=== PATIENT | male | born 1965 | race Caucasian/White ===

== ENCOUNTER → 2018-09-13 | Outpatient (CLI) | payer OTHER ==
[~2018-09-13] MED LIST: ASPIR 8181 MG PO; FINASTERIDE5 MG PO; FLUVIRIN 245 MCG/0.8 IM; LISINOPRIL10 MG PO; MOBIC15 MG PO; ZOCOR20 MG PO; ZOFRAN ODT4 MG PO
== END ==
LOC: CAT 09:58
DX: Z13.6 Encounter for screening for cardiovascular disorders (principal); E78.00 Pure hypercholesterolemia, unspecified; I25.10 Atherosclerotic heart disease of native coronary artery without angina pectoris

== ENCOUNTER → 2019-07-03 | Outpatient (CLI) | payer BC, OTHER ==
[~2019-07-03] MED LIST changes: +LIPITOR40 MG PO; +PROPECIA1 MG PO; +TOPROL XL200 MG PO; +XARELTO20 MG PO
== END ==
LOC: SJCVCIMAG 07:58
DX: I07.1 Rheumatic tricuspid insufficiency (principal); I11.9 Hypertensive heart disease without heart failure; I48.0 Paroxysmal atrial fibrillation; K55.9 Vascular disorder of intestine, unspecified; E66.9 Obesity, unspecified; E78.00 Pure hypercholesterolemia, unspecified; Z87.891 Personal history of nicotine dependence

== ENCOUNTER → 2019-07-06 | Outpatient (CLI) | payer BC, OTHER ==
[~2019-07-06] VITALS: Ht 190.5 cm; Wt 106.6 kg
[2019-07-06 08:52] VITALS: BP 106/74
[2019-07-06 08:53] LABS: HEMATOCRIT 45.1 % (42.0-52.0); HEMOGLOBIN 15.4 gm/dL (14.0-18.0); MCH 33.2 pg (26.0-34.0); MCHC 34.1 g/dL (28.0-37.0); MCV 97.4 fL (80.0-100.0); RBC 4.63 mil/uL (4.50-6.00); RDW 12.9 % (10.5-14.5); WBC 5.8 thou/uL (4.0-11.0)
[2019-07-06 09:03] LABS: ANION GAP 8 mmol/L (7-16); BUN 22 mg/dL (7-18); CALCIUM 9.2 mg/dL (8.5-10.1); CHLORIDE 105 mmol/L (98-107); CO2 26 mmol/L (21-32); CREATININE 1.2 mg/dL (0.7-1.3); GLUCOSE 95 mg/dL (74-106); POTASSIUM 4.8 mmol/L (3.5-5.1); SODIUM 139 mmol/L (136-145)
[2019-07-06 09:09] LABS: CHOLESTEROL 109 mg/dL (<200); HDL CHOLESTEROL 37 mg/dL (>40); LDL CHOLESTEROL 54 mg/dL (<100); TC:HDL 2.9 Ratio (Not establshd); TRIGLYCERIDE 91 mg/dL (<150); VLDL 18 mg/dL (<40)
--- NOTE | 2019-07-06 11:28 | EKG ---
[facility] [place] [address] ELECTROCARDIOGRAM REPORT Name: SANA ECKERT THAI Room #: PRE [facility]..#: [id number] Admission: Attend Phys: Derek Barrientos MD Discharge: Date of : 65 Report #: [id number] THIS REPORT FOR: cc: Thomas Horne MD, Rene P. MD Couchonnal, Luis F. MD ~ THIS REPORT FOR: //name// [facility] Test Date: 2019-07-06 Test Time: 08:43:07 Pat Name: SANA ECKERT Department: Room: Gender: Lunch Cook: Raya VALENCIA : 1965 Requested By: Derek Barrientos Order Number: [id number] MD: Jareth Anaya Measurements Intervals Parsons Rate: 135 P: 96 ME: 134 QRS: 61 QRSD: 141 T: 32 QT: 287 QTc: 431 Interpretive Statements Atrial flutter with RVR No previous ECG available for comparison Electronically Signed On 07-06-2019 11:27:58 BOOK AUTHOR by Jareth Anaya [email or web address] <ELECTRONICALLY SIGNED> By: Jareth Anaya MD 07/06/19 1127 2 2 Jareth Anaya MD /OSMANY
--- NOTE | 2019-07-06 15:42 | CATHLAB ---
[facility] [place] [address] INVASIVE PROCEDURE REPORT Name: SANA ECKERT Room #: REG [facility] JefersonDaysiRobert.#: [id number] Admission: 07/06/19 Attend Phys: Derek Barrientos MD Discharge: Date of : 65 Report #: [id number] THIS REPORT FOR: cc: Tohmas Horne MD, Rene P. MD Park, Jin S. MD ~ APPROVED REPORT Study performed: 07/06/2019 10:46:02 Patient Details Patient Status: Out-Patient Room #: The patient is a 54 year-old male Event Personnel Derek Barrientos Assistant Field Hockey Coach, Robel Alicea RN, Sana Saavedra Jackson, Sherra RTRobert Monitor Procedures Performed Art Access - R femoral artery* Left Heart Cath w/or w/o Coronaries [id number] [facility] 24723 Initial Mod Sed Same Phys/QHP Gr5y [id number] 05883 Mod Sed Same Phys/QHP Ea 258038 Indication Dizziness and vertigo, Atrial fibrillation, Dyspnea, Cardiomyopathy Risk Factors Hypertension Procedure Narrative The Right Groin^ was infiltrated with 1% Lidocaine subcutaneous anesthesia. A PINNACLE 4FR Sheath #[id number] sheath was inserted into the RFA^. Coronary angiography was performed using coronary diagnostic catheters. The right coronary system was accessed and visualized with a JR4 catheter. The left coronary system was accessed and visualized with a JL4 catheter. The left ventricle was accessed and visualized with a pigtail catheter. Hemostasis was obtained with manual pressure following sheath removal without any complications. The patient tolerated the procedure well and there were no complications associated with the procedure. There was no hematoma. Intraoperative Conscious Sedation [facility] [address] [place] [address] INVASIVE PROCEDURE REPORT Name: SANA ECKERT Room #: REG CL [facility]#: [id number] Admission: 07/06/19 Attend Phys: Derek Barrientos MD Discharge: Date of : 65 Report #: [id number] Sedation start time: 1051 Case end Time: 1118 Fentanyl 50 mcg Versed --1.5 mg Fluoro Time: 2.90 minutes Dose: DAP 4195.00 cGycm2 709 mGy Contrast Type and Amount: Omnipaque 35 ml Coronary Angiography The patient's coronary anatomy is right dominant. Diagnostic Cath Left Main The left main artery is a patent vessel, with no flow-limiting lesions. LAD The LAD is a moderate size caliber vessel, traverses the anterior wall and wraps around the apex. This vessel is patent with no flow-limiting lesions. Diagonal 1 This is a moderate size caliber vessel, patent with no flow-limiting lesions. Circumflex This is a moderate size caliber vessel, patent with no flow-limiting lesions. OM1 This is a moderate size caliber vessel, patent with no flow-limiting lesions. Right Coronary The RCA is a dominant vessel, patent with no flow-limiting lesions. R PDA This is a moderate size caliber vessel, patent with no flow-limiting lesions. RPLV This is a moderate size caliber vessel, patent with no flow-limiting lesions. Left Ventriculography Left Ventriculography was not performed. Ejection Fraction was 35-40% based off patient's Echocardiogram. An LVEDP was measured and there is no gradient across the outflow tract. Hemodynamics The aortic pressure is 96/76 mmHg with a mean of 85 mmHg. The left ventricular pressure is 93/14 mmHg with a mean of mmHg. The left ventricular end diastolic pressure is 22 mmHg. Conclusion 1. Angiographically normal coronary arteries. 2. Right dominant system. 3. Nonischemic cardiomyopathy. [facility] [address] [place] [address] INVASIVE PROCEDURE REPORT Name: ECKERTSANA THAI Room #: REG [facility]#: [id number] Admission: 07/06/19 Attend Phys: Derek Barrientos MD Discharge: Date of : 65 Report #: [id number] 4. Recommend EP evaluation for atrial flutter and guideline directed medical therapy. <ELECTRONICALLY SIGNED> By: Derek Barrientos MD 07/06/19 1541 [id number] 154 Derek Barrientos MD /INF
== END | disposition home or self-care (01) ==
LOC: CATH 11:24
PROVIDERS: Internal Medicine Cardiovascular Disease
DX: I42.9 Cardiomyopathy, unspecified (principal); I48.91 Unspecified atrial fibrillation; R06.00 Dyspnea, unspecified; R42 Dizziness and giddiness; I10 Essential (primary) hypertension; E78.00 Pure hypercholesterolemia, unspecified; Z87.891 Personal history of nicotine dependence; Z98.890 Other specified postprocedural states; Z79.899 Other long term (current) drug therapy; Z98.0 Intestinal bypass and anastomosis status

== ENCOUNTER → 2019-07-09 | Outpatient (CLI) | payer BC, OTHER ==
[~2019-07-09] VITALS: Ht 190.5 cm; Wt 106.6 kg
[2019-07-09 07:21] VITALS: BP 108/81
--- NOTE | 2019-07-09 09:52 | TEE ---
[facility] [place] [address] TRANSESOPHAGEAL ECHOCARDIOGRAM Name: SANA ECKERT [id number] Admission: 07/09/19 Attend Phys: Javier Armijo MD, Discharge: Date of : 65 Report #: [id number] THIS REPORT FOR: cc: Thomas Horne MD, Rene P. MD Lundgren, Craig H. MD [facility] ~ APPROVED REPORT Study performed: 07/09/2019 08:10:07 EXAM: Transesophageal Echocardiogram with Doppler and Cardioversion Patient Location: Out-Patient Room #: 9 Status: routine BSA: 2.35 HR: 129 bpm BP: 105/81 mmHg Rhythm: Atrial Fibrillation Other Information Study Quality: Excellent Indications Atrial Fibrillation Echo Enhancing Agent Indication: Rule out Shunt Agent(s) / Amount(s) Used: Agitated Saline 7 cc Procedure After obtaining informed consent, patient underwent transesophageal echo in the [employer]. Type of Sedation : Conscious Sedation Sedation was administered by Noemi Carroll RN. Sedation was achieved intravenously with: Versed (6 mg) Fentanyl (175 mcg) Transesophageal probe was inserted and advanced into esophagus without difficulty by Javier Armijo MD. Echo enhancement indication: R/O Thrombus. Echo enhancement agent administered: Agitated Saline The HOLLIS was performed without complications. Synchronized Cardioversion attempted: 50 Joules 1 attempt Synchronized Cardioversion acheived with 150 Joules after 1 [facility] [address] [place] [address] TRANSESOPHAGEAL ECHOCARDIOGRAM Name: SANA ECKERT Room #: REG CL [facility]#: [id number] Admission: 07/09/19 Attend Phys: Javier Armijo, Discharge: Date of : 65 Report #: [id number] attempt(s). Rhythm following Synchronized Cardioversion: Normal Sinus Rhythm Throughout the procedure, the blood pressure, pulse oximetry, cardiac rhythm, and rate were monitored. The patient tolerated the procedure without adverse effects. Recovery from conscious sedation was uneventful and vital signs were stable. Left Ventricle The left ventricle is normal size. There is normal LV segmental wall motion. There is normal left ventricular wall thickness. The left ventricular systolic function is at the lower limits of normal. LVEF is 50%. Right Ventricle The right ventricle is normal size. The right ventricular systolic function is normal. Atria Left atrium is at the upper limits of normal. No thrombus is visualized in the left atrium or appendage. No shunting by contrast bubble injection Right atrium is at the upper limits of normal. Aortic Valve The aortic valve is normal in structure, trileaflet. No aortic regurgitation is present. There is no aortic valvular stenosis. Mitral Valve The mitral valve is normal in structure. Mild mitral regurgitation. No evidence of mitral valve stenosis. Tricuspid Valve The tricuspid valve is normal in structure. Trace to mild tricuspid regurgitation. Pulmonic Valve The pulmonary valve is normal in structure. There is no pulmonic valvular regurgitation. Great Vessels The aortic root is normal in size. IVC is normal in size and collapses >50% with inspiration. Pericardium [facility] [address] [place] [address] TRANSESOPHAGEAL ECHOCARDIOGRAM Name: TOMEKASANA THAI Room #: REG [facility]#: [id number] Admission: 07/09/19 Attend Phys: Javier Armijo, Discharge: Date of : 65 Report #: [id number] There is no pericardial effusion. Critical Notification Physician Notified <Conclusion> The left ventricular systolic function is at the lower limits of normal. LVEF is 50%. Left atrium is at the upper limits of normal. No thrombus is visualized in the left atrium or appendage. No shunting by contrast bubble injection The aortic valve is normal in structure, trileaflet. No aortic regurgitation or stenosis The mitral valve is normal in structure. Mild mitral regurgitation. There is no pericardial effusion. Successful cardioversion of atrial flutter initially to atrial fibrillation then to sinus rhythm following two synchronous joules shocks. <ELECTRONICALLY SIGNED> By: Javier Armijo MD, [facility] 07/09/1951 0951 Javier Armijo MD, FACC /INF
== END | disposition home or self-care (01) ==
LOC: CATH 06:34
DX: I48.91 Unspecified atrial fibrillation (principal); I08.1 Rheumatic disorders of both mitral and tricuspid valves; I48.92 Unspecified atrial flutter; I10 Essential (primary) hypertension; E78.5 Hyperlipidemia, unspecified; I42.9 Cardiomyopathy, unspecified; Z82.49 Family history of ischemic heart disease and other diseases of the circulatory system; Z87.891 Personal history of nicotine dependence; Z98.890 Other specified postprocedural states; Z79.01 Long term (current) use of anticoagulants; Z79.899 Other long term (current) drug therapy; Z98.0 Intestinal bypass and anastomosis status

== ENCOUNTER → 2019-07-13 | Outpatient (CLI) | payer BC, OTHER | LOC: CAT 14:49 | DX: I48.91 Unspecified atrial fibrillation (principal); J98.11 Atelectasis; J90 Pleural effusion, not elsewhere classified; J98.4 Other disorders of lung; M47.814 Spondylosis without myelopathy or radiculopathy, thoracic region ==

== ENCOUNTER 2019-09-26 06:40 | Observation (INO) | payer BC, OTHER ==
[~2019-09-26] VITALS: Ht 190.5 cm; Wt 125.6 kg
[2019-09-26 07:18] VITALS: BP 146/75
[2019-09-26 07:24] LABS: PROTIME 10.6 Seconds (9.3-11.4)
[2019-09-26] MEDS ORDERED: TOPROL XL100 MG PO (07:24)
[2019-09-26 16:51] VITALS: BP 135/76
[2019-09-26 19:34] VITALS: BP 129/72
--- NOTE | 2019-09-26 20:13 | NUR ---
ASSUMED CARE OF PT APPROX 1430. PT A&OX4, VSS, DENIES PAIN. PATIENT HAS BILAT GROIN WITH VANESSA DRESSING, C/D/I, NO BLEEDIND, SOFT AND FLAT TO TOUCH. FIRST SET OF VITALS GOTTEN AND APPLIED TO BOARD BY THIS NURSE, VITALS MACHINE SET ON CONTINUOUS. DIRECTOR CRAFT CENTER S[employer] ASKED TO DOCUMENT THOSE VITALS. VITALS WERE Q15 X4 AMD Q 1HR X4. NO VITALS DOCUMENTED BY DIRECTOR CRAFT CENTER. PATIENT HAS BEEN ON BEDREST UNTIL 5PM. CHOI REMOVED. TELE MONITOR APPLIED, SINUS RHYTHM. NO SIGNS OF DISTRESS. WILL CONTINUE TO MONITOR.
[2019-09-27 00:18] VITALS: BP 133/84
--- NOTE | 2019-09-27 03:23 | NUR ---
ASSESSMENT DOCUMENTED.PT BEEN RESTING IN NO ACUTE DISTRESS.A/OX4.VSS.POST AFIB ABLATION.SERA GROIN INTACT,NO HEMATOMA OR ANY ACTIVE BLEEDING NOTED.PT UP AD GINA TO BR.DENIES NEEDS.ON MONITOR NSR.POC IS TO GO HOME THIS AM.
[2019-09-27 04:08] VITALS: BP 122/71
[2019-09-27 08:00] VITALS: BP 146/87
[2019-09-27 09:24] VITALS: BP 146/87
[2019-09-27 09:35] VITALS: BP 146/87
--- NOTE | 2019-09-27 10:43 | NUR ---
Assumed care approx 0700. Assessment as charted. Tele monitor taken off of pt and IV d/c'd. Discharge paperwork/education reviewed with pt. He denies questions or concerns regarding post hospital care. Groin sites C/D/I. Will escort pt off unit timely.
--- NOTE | 2019-09-28 14:28 | P ---
[facility] [place] [place] [address] PROCEDURE REPORT Name: SANA ECKERT Room #: 210-[facility] Jake Michaud#: [id number] Admission: 09/26/19 Attend Phys: Jareth Anaya MD Discharge: 09/27/19 Date of : 65 Report #: [id number] THIS REPORT FOR: cc: Thomas Horne MD, Rene P. MD Couchonnal, Luis F. MD ~ CC: Jareth Horne DATE OF SERVICE: 09/26/2019 ATRIAL FIBRILLATION ABLATION PREOPERATIVE DIAGNOSES: 1. Atrial fibrillation. 2. Atrial flutter. POSTOPERATIVE DIAGNOSES: 1. Atrial fibrillation. 2. Atrial flutter. PROCEDURES PERFORMED: 1. Atrial fibrillation ablation, CPT code 88779. 2. Mapping, CPT code 50835. 3. Intracardiac echo, CPT code 90880. 4. Second pathway ablation, CPT code 12042. HISTORY: The patient is a 54-year-old male with a history of atrial fibrillation, atrial flutter and decreased ejection fraction, here for AFib and atrial flutter ablation. ANESTHESIA: The patient underwent general anesthesia with no anesthesia related complications. DESCRIPTION OF PROCEDURE: The patient underwent informed consent. Next, the patient was brought to EP laboratory in a fasting and sedated state and prepped and draped in a sterile fashion. Lidocaine was injected in bilateral groins and obtained access to the right femoral vein x 3 and the left femoral vein x 1. In the right femoral vein, I placed 2, 8 and a 9-Slovak short sheath. In the left femoral vein, I placed a 7-Slovak short sheath. Under fluoroscopy, I placed a decapolar catheter into the coronary sinus for left atrial pacing and recording. I placed an ICE catheter in the right atrium and I created a detailed 3D geometry using [employer]. This was merged with the cardiac CT scan. The patient did have evidence of left common ostium and right superior and right inferior pulmonary veins. Next, the patient was systemically heparinized and a transseptal was performed using an SL1 sheath and a [place] needle. This was [facility] [address] [place] [address] PROCEDURE REPORT Name: ECKERTSANA THAI Room #: 210-[facility] Jake Michaud#: [id number] Admission: 09/26/19 Attend Phys: Jareth Anaya MD Discharge: 09/27/19 Date of : 65 Report #: [id number]. I then exchanged for the cryo sheath and advanced this into the left atrium with no issues. Next, with a Lasso catheter, I created a detailed 3D voltage map of the left atrium and then placed the cryoballoon into the left atrium. I started by isolating the left common ostium. This was a large vein and balloon easily occluded the vessel. I performed 3 freezes and this vessel isolated during the first freeze. I had to come off during these freezes as the attempts were less than -50 degrees. I then turned my attention to the right superior pulmonary vein and this vein required one freeze to isolate it. The right inferior pulmonary vein underwent 3 freezes and afterwards this vein was also isolated. Three freezes were required because I had to come off because the attempts were getting cold. All veins were re-interrogated using the Lasso catheter and there was evidence of isolation of all veins. As such, cryo sheath was pulled to the right atrium and the patient was prepped for atrial flutter ablation. ATRIAL FLUTTER ABLATION: Next, I placed an 8-mm ablation catheter via a ramp sheath into the right atrium. Pre-ablation, the transisthmus conduction time was 65 milliseconds. I performed ablation at 70 montalvo and 60 degrees and post-ablation, there was evidence of bidirectional block with transisthmus conduction time of 150 milliseconds. I performed an additional line of ablation guided by local electrograms and at this point, the procedure was concluded. Using intracardiac ultrasound, I verified there was no pericardial effusion. The patient received systemic protamine and once ACT was within acceptable range, catheters and sheaths were pulled and hemostasis was obtained. The patient awoke neurologically and hemodynamically intact. No complications and no significant bleeding. CONCLUSIONS: 1. Successful AFib ablation with isolation of the pulmonary veins. 2. Successful atrial flutter ablation with evidence of bidirectional block. <ELECTRONICALLY SIGNED> By: Jareth Anaya MD 09/28/19 1428 1107 1317 Jareth Anaya MD /nt
== END 2019-09-27 10:48 | disposition home or self-care (01) ==
LOC: CATH 06:40 → 2N 13:36 → CATH 13:57 → 2N 09-27 10:48
PROVIDERS: ADMIT Internal Medicine Cardiovascular Disease
DX: I48.91 Unspecified atrial fibrillation (principal); I48.92 Unspecified atrial flutter; Z11.59 Encounter for screening for other viral diseases
CPT/HCPCS: 10797; 62110; 62900; 65020; 65040; 70005

== ENCOUNTER → 2019-10-19 | Outpatient (CLI) | payer BC, OTHER ==
[~2019-10-19] MED LIST changes: +TOPROL XL100 MG PO
== END ==
LOC: CAT 10:18
DX: J90 Pleural effusion, not elsewhere classified (principal); I48.19 Other persistent atrial fibrillation; I51.7 Cardiomegaly

== ENCOUNTER → 2020-08-15 | Outpatient (CLI) | payer BC, OTHER | LOC: SJCVCIMAG 08:28 | PROVIDERS: ATTEND Internal Medicine Cardiovascular Disease | DX: I07.1 Rheumatic tricuspid insufficiency (principal); I10 Essential (primary) hypertension; I42.9 Cardiomyopathy, unspecified; I48.0 Paroxysmal atrial fibrillation; R42 Dizziness and giddiness ==

== ENCOUNTER → 2020-11-13 | Outpatient (CLI) | payer BC, OTHER | LOC: RAD 08:32 | PROVIDERS: ATTEND Family Medicine | DX: R07.89 Other chest pain (principal) ==